=== PATIENT | female | born 1980 | race Hispanic/Latino ===

== ENCOUNTER 2017-11-19 11:33 | Day surgery (SDC) | payer OTHER ==
[2017-11-17 09:39] VITALS: BMI 21.4
[2017-11-19 12:41] VITALS: RESP 18
[2017-11-19 13:02] LABS: HEMOGLOBIN 14.3 g/dL (12.0-16.0); MEAN CELL VOLUME 86.9 fl (81.0-99.0); MEAN CORPUSCULAR HEMOGLOBIN 29.4 pg (27.0-31.0); MEAN CORPUSCULAR HGB CONC 33.8 g/dL (33.0-37.0); RBC 4.87 Mil/uL (3.80-5.20); RED CELL DISTRIBUTION WIDTH 13.4 % (11.5-14.5); WHITE BLOOD COUNT 7.4 K/uL (4.8-10.8)
[2017-11-19] MEDS ORDERED: Bupivacaine 0.5% Inj(30mL) ONE (14:00)
[2017-11-19] MEDS ORDERED: ePHEDrine 50 mg/ml Inj ONE (14:24)
[2017-11-19] MEDS ORDERED: Midazolam 2 MG/2 ML VIAL ONE (14:24)
[2017-11-19] MEDS ORDERED: Rocuronium 10 mg/ml (5 ml) ONE (14:24)
[2017-11-19] MEDS ORDERED: Lidocaine 4% (Laryng-O-Jet) Kit MM ONE (14:24)
[2017-11-19] MEDS ORDERED: Propofol 10 mg/ml Inj (20 ML) ONE (14:24)
[2017-11-19] MEDS ORDERED: Lactated Ringer's 1,000 ML IV ONE ×3 (14:34→17:00)
[2017-11-19] MEDS ORDERED: Dexamethasone 4 mg/1 ml ONE (15:00)
[2017-11-19] MEDS ORDERED: Neostigmine Methylsulfate 3mg/3ml Syringe IV ONE (15:18)
[2017-11-19] MEDS ORDERED: Silver Nitrate Topical - Stick TOP ONE (15:55)
[2017-11-19] MEDS ORDERED: Lactated Ringer's 1,000 ML IV SCH (16:30)
[2017-11-19] MEDS ORDERED: Oxycodone/Acetaminophen 5/325 mg Tab PO PRN (16:38)
[2017-11-20 00:28] VITALS: BP 124/69; PULSE 112; TEMP 98.9; O2SAT 98
--- NOTE | 2017-11-20 10:07 | PCM.OP ---
Operative Report - Operative Report Date of Surgery/Procedure: 11/19/17 Time of Surgery/Procedure: 15:00 Surgeon: Dr. Collin Urbina Embedded Systems Software Developer: Dr. Gustavo Peters Anesthesia/Sedation: general/Dr. Anand Pre-Operative Diagnosis: endometriosis and abdominal pain Post-Operative Diagnosis: Multiple liver tumors and adhesions Indication for Surgery: as above Operative Findings: Multiplem liver tumors, adhesions, and endometriosis Procedure/Operation Description: 1-lysis of adhesions. 2-liver biopsy. Brief History: This is a 37 year old woman already brought to the operating room by Dr. Peters when he noted adhesins from thre previous laparoscopic surgery. Intraoperative general surgery consultation was requested. Description of the Procedure: Dr. Fran lewis already initiated the robotic procedure (separate dictation Dr. Peters) when he noted adhesions innce conmpleted the the right lower quadrant of the abdomen from previous laparoscopic surgery and mutloiple lesions on the liver. Using blunt and sharp dissection the adhesions were lysed with care. Our attention then turned to the liver where ther were multiple surface lesions not apparently consistent with the usual appearance of endometriosis. With blunt and sharp dissection one lesion in segment 3 of the left hemiliver was dissected and excised. this was appropriately marked and sent to pathology as a separate specimen. The lver was examined and hemostasis was deemed adequate. the operation was then turned back over to Dr. Peters ( separate dictation Dr. Peters). Estimated Blood Loss: 2 cc Complications: none Specimen: liver tissue segment 3 of left hemiliver Discharge & Condition: stable
--- NOTE | 2017-12-04 08:40 | OP ---
PROCEDURE DATE: 11/19/2017 PREOPERATIVE DIAGNOSES: Pelvic pain, dysmenorrhea, dyspareunia and bladder pain. POSTOPERATIVE DIAGNOSIS: Pelvic pain, dysmenorrhea, dyspareunia, bladder pain, pelvic endometriosis and multiple liver lesions. PROCEDURE: Cystoscopy with bladder urethral catheterization injection with dye, hysteroscopy diagnostic, robotic laparoscopy, da Jennifer excision of endometriosis, bilateral ureterolysis and to be dictated separately by Dr. Collin Urbina from general surgery, there is a excision of liver mass on the left liver segment. SURGEON: Gustavo Peters MD COKEMAN: Collin Urbina MD ESTIMATED BLOOD LOSS: Minimal. COMPLICATIONS: None. INDICATION FOR THE PROCEDURE: The patient is a 37-year-old female with a history of pelvic pain, dysmenorrhea, dyspareunia, bladder pain and with a suspicion of endometriosis she had a clinical examination positive for point tenderness and peritoneal signs. She was counseled with regards to risk and benefits of the surgery and reaffirmed the consent on the day of surgery and was taken to ER. DESCRIPTION OF PROCEDURE: After adequate anesthesia was obtained, the patient was placed in dorsal lithotomy position. She was prepped and in the surgical gown and gloved. A timeout was taken according the hospital standard and at this point the procedure was started. A cystoscope was inserted into the bladder under direct visualization, the bladder appeared to be normal with no evidence of lesions, masses or tumors. Both ureteral orifices were in the normal anatomical positions. The left ureteral ostium was then cannulated with a 5 [place] catheter and 5 mL of IC-Green were injected. On the opposite side, the contralateral ureter was then also cannulized with a 5 [place] stent and a 5 mL of IC-Green were instilled into the distal ureter. The catheter was then removed. The cystoscope was removed and a Nieves was placed into the bladder. At this point, attention was in the vaginal area where speculum was placed in the vagina. The anterior lip of the cervix was grasped. The cervix was gently dilated and a hysteroscope was inserted in the uterine cavity. The cavity appeared to be normal without any evidence of lesions or polyps. At this point, attention was on the abdominal site where an open laparoscopy was performed according to standard technique by making a incision to the skin, carrying all the way down to the fascia and I entered the peritoneum in the blunt fashion. The cannula was inserted, under direct visualization 3 additional ports were inserted, left upper quadrant, left mid quadrant and right upper quadrant. At this point, the pelvis was examined revealing evidence of endometriosis in the both left and right pelvic side wall. Exploration of the abdomen revealed presence of at least 20 lesions on the liver both on the right and the left side of the liver. These lesions appeared were superficial, but because of the number of lesions Dr. Collin Urbina from general surgery was called then to evaluate. He proceeded to excising one of the lesions for diagnostic purposes. He will dictate this procedure separately. Once the lesion was excised, da Jennifer robot was then docked and the procedure was started. The anterior surface of the bladder appeared to be normal. The posterior aspect of the uterus appeared to have lesions. We started on the left hand side after elevating the ovary. The fallopian tube appeared to be normal. The peritoneum was entered and the retroperitoneal space was entered. The peritoneum was then progressively lateralized and the ureter was lateralized and the peritoneum was medialized. A full dissection was performed, excising a large area of peritoneum. Again on the left ovarian fossa an area of endometriosis was also identified, it was progressively excised in a [id number] fashion without any issue and avoiding the uterine artery. At this point, attention was on the right hand side where after elevating the ovary again the retroperitoneal area was entered. A full dissection was performed of the ureter which was dissected in a progressive fashion utilizing fluorescent technology. The peritoneum was medialized and area containing of endometriosis was also excised. The right ovarian fossa also contained endometriosis which was also excised with great care to avoid the uterine artery. At this point, additional inflammatory areas were eliminated utilizing the bipolar global marketing coordinator. At this time it was checked for hemostasis and appeared to excellent. The da Jennifer robot was undocked, the instruments were removed, the abdomen desufflated and the sutures were closed in layers with 0 PDS for the fascia and 4-0 Monocryl for the skin. Gustavo Peters MD
== END 2017-11-19 21:45 | disposition home or self-care (01) ==
LOC: H.OPSURG 11:33 → H.PEDS 20:16 → H.OPSURG 21:45
PROVIDERS: ATTEND Obstetrics & Gynecology Reproductive Endocrinology
DX: N80.1 Endometriosis of ovary (principal); R10.2 Pelvic and perineal pain; N94.6 Dysmenorrhea, unspecified; N94.10 Unspecified dyspareunia; R39.89 Other symptoms and signs involving the genitourinary system; K76.9 Liver disease, unspecified; K66.0 Peritoneal adhesions (postprocedural) (postinfection)
CPT/HCPCS: 36415; 47000; 49329; 52332; 58662; 85027; 86850; 86900; 88305; 88307; C1729; J0690; J1100; J1170; J1885; J2001; J2250; J2405; J2704; J2710; J3010; J7030; J7040; J7120